=== PATIENT | male | born 1975 | race Caucasian/White ===

== ENCOUNTER 2018-01-09 15:28 | Observation (INO) | payer OTHER ==
[2018-01-09 16:14] LABS: BASO # 0.1 10^3/uL (0.0-0.2); BASO % 1.1 % (0.0-1.0); EOS # 0.2 10^3/uL (0.0-0.50); EOS % 2.1 % (0.0-3.0); HEMATOCRIT 43.7 % (42.0-52.0); HEMOGLOBIN 14.7 g/dl (13.5-17.5); IMMATURE GRANULOCYTE % 0.5 % (0-3.0); LYMPH # 2.9 10^3/uL (1.5-4.5); LYMPH % 33.6 % (24.0-44.0); MEAN CORPUSCULAR HEMOGLOBIN 28.1 pg (27.0-33.0); MEAN CORPUSCULAR HGB CONC 33.6 g/dl (32.0-36.5); MEAN CORPUSCULAR VOLUME 83.4 fl (80.0-96.0); MONO # 0.6 10^3/uL (0.0-0.8); MONO % 7.2 % (0.0-5.0); NEUTROPHILS # 4.7 10^3/uL (1.8-7.7); NEUTROPHILS % 55.5 % (36.0-66.0); PLATELET COUNT, AUTOMATED 314 10^3/uL (150-450); RED BLOOD COUNT 5.24 10^6/uL (4.30-6.10); WHITE BLOOD COUNT 8.5 10^3/uL (4.0-10.0)
[2018-01-09 16:26] LABS: INR 0.93; PROTHROMBIN TIME 12.5 SECONDS (12.4-14.5)
[2018-01-09 16:38] LABS: ALBUMIN/GLOBULIN RATIO 1.14 (1.00-1.93); ALKALINE PHOSPHATASE 81 U/L (45-117); ALT/SGPT 45 U/L (12-78); ANION GAP 8 MEQ/L (8-16); AST/SGOT 22 U/L (7-37); BILIRUBIN,DIRECT 0.2 MG/DL (0.0-0.2); BLOOD UREA NITROGEN 20 MG/DL (7-18); CALCIUM LEVEL 8.7 MG/DL (8.5-10.1); CARBON DIOXIDE LEVEL 27 MEQ/L (21-32); CHLORIDE LEVEL 107 MEQ/L (98-107); CPK CREATINE PHOSPHOKINASE 235 U/L (39-308); CREATININE FOR GFR 1.24 MG/DL (0.70-1.30); GLOMERULAR FILTRATION RATE > 60.0 (>60); GLUCOSE, FASTING 103 MG/DL (70-100); LIPASE 117 U/L (73-393); POTASSIUM SERUM 3.7 MEQ/L (3.5-5.1); SODIUM LEVEL 142 MEQ/L (136-145); TOTAL PROTEIN 7.5 GM/DL (6.4-8.2); TROPONIN I < 0.02 NG/ML (< 0.10)
[2018-01-09 16:44] LABS: CK-MB VALUE MASS 2.8 NG/ML (<3.6); MB/CK RELATIVE INDEX 1.19 (< OR =4)
[2018-01-09] MEDS: ASPIRIN 81 MG CHEW TABLET PO (18:08)
[2018-01-09] MEDS: NITROGLYCERIN 0.4 MG SUBL TABLET SL ×3 (18:09→18:26)
[2018-01-09] MEDS ORDERED: ISOVUE-370 76% 100ML VIAL (Q9967) As Ordered (19:00)
[2018-01-09] MEDS ORDERED: ONDANSETRON 4MG/2ML VIAL (J2405) IV (22:00)
[2018-01-09] MEDS: OMEPRAZOLE 20 MG CAP PO (22:42)
[2018-01-09] MEDS: FUROSEMIDE 40 MG/4 ML VIAL (J1940) IV (22:42)
[2018-01-09 23:07] LABS: CK-MB VALUE MASS 1.8 NG/ML (<3.6); CPK CREATINE PHOSPHOKINASE 195 U/L (39-308); MB/CK RELATIVE INDEX 0.92 (< OR =4); TROPONIN I < 0.02 NG/ML (< 0.10)
[2018-01-10] MEDS: ACETAMINOPHEN 500 MG TAB PO ×4 (00:22→23:55)
[2018-01-10 06:21] LABS: CK-MB VALUE MASS 1.6 NG/ML (<3.6); CPK CREATINE PHOSPHOKINASE 173 U/L (39-308); MB/CK RELATIVE INDEX 0.92 (< OR =4)
[2018-01-10 08:12] LABS: BLOOD UREA NITROGEN 17 MG/DL (7-18); CALCIUM LEVEL 8.5 MG/DL (8.5-10.1); CHLORIDE LEVEL 107 MEQ/L (98-107); CREATININE FOR GFR 1.35 MG/DL (0.70-1.30); GLUCOSE, FASTING 147 MG/DL (70-100); POTASSIUM SERUM 3.4 MEQ/L (3.5-5.1); SODIUM LEVEL 141 MEQ/L (136-145)
[2018-01-10 08:14] LABS: HEMATOCRIT 44.9 % (42.0-52.0); HEMOGLOBIN 15.1 g/dl (13.5-17.5); MEAN CORPUSCULAR HGB CONC 33.6 g/dl (32.0-36.5); MEAN CORPUSCULAR VOLUME 83.1 fl (80.0-96.0); PLATELET COUNT, AUTOMATED 284 10^3/uL (150-450); RED CELL DISTRIBUTION WIDTH 13.2 % (11.5-14.5); WHITE BLOOD COUNT 7.3 10^3/uL (4.0-10.0)
[2018-01-10 08:20] LABS: ANION GAP 6 MEQ/L (8-16); CARBON DIOXIDE LEVEL 28 MEQ/L (21-32)
[2018-01-10] MEDS: SENOKOT S TAB PO ×2 (08:26→21:06)
[2018-01-10] MEDS: OMEPRAZOLE 20 MG CAP PO ×2 (08:26→21:06)
[2018-01-10] MEDS: ASPIRIN 81 MG CHEW TABLET PO (08:26)
[2018-01-10] MEDS: POTASSIUM CHLORIDE 10 MEQ SR TABLET PO (10:01)
[2018-01-10] MEDS: KETOROLAC 30 MG/ML VIAL (J1885) IV (21:07)
[2018-01-11] MEDS: KETOROLAC 30 MG/ML VIAL (J1885) IV (07:02)
[2018-01-11 08:28] LABS: HEMATOCRIT 46.3 % (42.0-52.0); HEMOGLOBIN 15.5 g/dl (13.5-17.5); MEAN CORPUSCULAR HGB CONC 33.5 g/dl (32.0-36.5); MEAN CORPUSCULAR VOLUME 83.7 fl (80.0-96.0); PLATELET COUNT, AUTOMATED 326 10^3/uL (150-450); RED BLOOD COUNT 5.53 10^6/uL (4.30-6.10); RED CELL DISTRIBUTION WIDTH 13.1 % (11.5-14.5); WHITE BLOOD COUNT 9.4 10^3/uL (4.0-10.0)
[2018-01-11 09:14] LABS: ANION GAP 6 MEQ/L (8-16); BLOOD UREA NITROGEN 16 MG/DL (7-18); CALCIUM LEVEL 9.1 MG/DL (8.5-10.1); CARBON DIOXIDE LEVEL 30 MEQ/L (21-32); CHLORIDE LEVEL 106 MEQ/L (98-107); CREATININE FOR GFR 1.41 MG/DL (0.70-1.30); GLOMERULAR FILTRATION RATE 58.1 (>60); GLUCOSE, FASTING 89 MG/DL (70-100); MAGNESIUM LEVEL 2.7 MG/DL (1.8-2.4); POTASSIUM SERUM 4.3 MEQ/L (3.5-5.1); SODIUM LEVEL 142 MEQ/L (136-145)
[2018-01-11] MEDS: ASPIRIN 81 MG CHEW TABLET PO (09:45)
[2018-01-11] MEDS: ACETAMINOPHEN 500 MG TAB PO (09:46)
[2018-01-11] MEDS: SENOKOT S TAB PO (09:46)
[2018-01-11] MEDS: OMEPRAZOLE 20 MG CAP PO (09:46)
== END 2018-01-11 12:55 | disposition home or self-care (01) ==
LOC: M MSPAV 01-10 00:02 → M ED 15:28 → M ED INP 21:57
DX: R07.89 Other chest pain (principal); E87.6 Hypokalemia; R09.89 Other specified symptoms and signs involving the circulatory and respiratory systems; K21.9 Gastro-esophageal reflux disease without esophagitis; R79.89 Other specified abnormal findings of blood chemistry; R42 Dizziness and giddiness; H93.19 Tinnitus, unspecified ear; M54.16 Radiculopathy, lumbar region; M51.26 Other intervertebral disc displacement, lumbar region; Z88.8 Allergy status to other drugs, medicaments and biological substances; Z91.030 Bee allergy status; Z98.1 Arthrodesis status; Z87.891 Personal history of nicotine dependence; Z79.899 Other long term (current) drug therapy
CPT/HCPCS: Q9967

== ENCOUNTER → 2018-01-13 | Outpatient (CLI) | payer OTHER ==
[2018-01-13 11:05] LABS: ANION GAP 7 MEQ/L (8-16); BLOOD UREA NITROGEN 13 MG/DL (7-18); CARBON DIOXIDE LEVEL 29 MEQ/L (21-32); CHLORIDE LEVEL 107 MEQ/L (98-107); CREATININE FOR GFR 1.32 MG/DL (0.70-1.30); GLOMERULAR FILTRATION RATE > 60.0 (>60); GLUCOSE, FASTING 83 MG/DL (70-100); POTASSIUM SERUM 4.3 MEQ/L (3.5-5.1); SODIUM LEVEL 143 MEQ/L (136-145)
== END ==
LOC: M LAB 09:32
DX: R79.9 Abnormal finding of blood chemistry, unspecified (principal)
CPT/HCPCS: 80048

== ENCOUNTER → 2018-03-09 | Outpatient (CLI) | payer OTHER ==
[2018-03-09 13:05] LABS: BASO # 0.1 10^3/uL (0.0-0.2); BASO % 1.1 % (0.0-1.0); EOS # 0.2 10^3/uL (0.0-0.50); EOS % 2.2 % (0.0-3.0); HEMATOCRIT 45.5 % (42.0-52.0); HEMOGLOBIN 15.2 g/dl (13.5-17.5); IMMATURE GRANULOCYTE % 0.3 % (0-3.0); LYMPH # 2.8 10^3/uL (1.5-4.5); LYMPH % 38.4 % (24.0-44.0); MEAN CORPUSCULAR HEMOGLOBIN 28.5 pg (27.0-33.0); MEAN CORPUSCULAR HGB CONC 33.4 g/dl (32.0-36.5); MEAN CORPUSCULAR VOLUME 85.2 fl (80.0-96.0); MONO # 0.5 10^3/uL (0.0-0.8); MONO % 6.7 % (0.0-5.0); NEUTROPHILS # 3.7 10^3/uL (1.8-7.7); NEUTROPHILS % 51.3 % (36.0-66.0); PLATELET COUNT, AUTOMATED 292 10^3/uL (150-450); RED BLOOD COUNT 5.34 10^6/uL (4.30-6.10); RED CELL DISTRIBUTION WIDTH 12.5 % (11.5-14.5); WHITE BLOOD COUNT 7.2 10^3/uL (4.0-10.0)
[2018-03-09 13:26] LABS: ERYTHROCYTE SEDIMENTATION RATE 4 mm/hr (0-15)
[2018-03-09 13:34] LABS: VITAMIN B12 LEVEL 622 PG/ML
[2018-03-09 13:37] LABS: ALBUMIN/GLOBULIN RATIO 1.08 (1.00-1.93); ALKALINE PHOSPHATASE 81 U/L (45-117); ALT/SGPT 66 U/L (12-78); ANION GAP 8 MEQ/L (8-16); AST/SGOT 27 U/L (7-37); BILIRUBIN,TOTAL 0.9 MG/DL (0.2-1.0); BLOOD UREA NITROGEN 22 MG/DL (7-18); CALCIUM LEVEL 9.1 MG/DL (8.5-10.1); CARBON DIOXIDE LEVEL 28 MEQ/L (21-32); CHLORIDE LEVEL 107 MEQ/L (98-107); CREATININE FOR GFR 1.32 MG/DL (0.70-1.30); FREE T4 1.08 NG/DL (0.76-1.46); GLOMERULAR FILTRATION RATE > 60.0 (>60); GLUCOSE, FASTING 85 MG/DL (70-100); RHEUMATOID FACTOR QUANT < 10.0 IU/ML (<15.0); SODIUM LEVEL 143 MEQ/L (136-145); TOTAL PROTEIN 7.7 GM/DL (6.4-8.2)
[2018-03-14 00:09] LABS: VITAMIN B1 LEVEL WHOLE BLOOD 130.9 nmol/L (66.5-200.0)
[2018-03-20 15:00] LABS: ANTINUCLEAR ANTIBODIES DIRECT Negative (Negative); Lyme Disease IgG/IgM Antibodie <0.91 ISR (0.00-0.90); Lyme Disease IgM Ab Quantitati <0.80 index (0.00-0.79); VITAMIN E(ALPHA TOCOPHEROL) 9.6 mg/L (7.0-25.1); VITAMIN E(GAMMA TOCOPHEROL) 1.2 mg/L (0.5-5.5)
== END ==
LOC: M LAB 12:15
DX: R42 Dizziness and giddiness (principal); E07.9 Disorder of thyroid, unspecified
CPT/HCPCS: 82746

== ENCOUNTER 2018-09-27 15:31 | Emergency (ER) | payer OTHER ==
[~2018-09-27] VITALS: Ht 182.9 cm; Wt 106.8 kg
[~2018-09-27 15:31] MED LIST: /ESOM40CA OR; CHIL81CH2 PO; EPIP0.3I2 INJ; NEUR100C OR; OMEP40CA2; OMEP40CA2 PO; PERC5TAB8 OR; ROBA500T OR; ROBA750T OR
[2018-09-27] MEDS ORDERED: VENTAER INH (15:44)
[2018-09-27] MEDS ORDERED: ADVA230A INH (15:44)
[2018-09-27] MEDS ORDERED: CHLO125TA PO (16:00)
[2018-09-27 16:03] LABS: BASO # 0.1 10^3/uL (0.0-0.2); BASO % 0.9 % (0.0-1.0); EOS # 0.2 10^3/uL (0.0-0.50); EOS % 2.1 % (0.0-3.0); HEMATOCRIT 43.5 % (42.0-52.0); HEMOGLOBIN 14.7 g/dl (13.5-17.5); LYMPH # 2.8 10^3/uL (1.5-4.5); LYMPH % 32.7 % (24.0-44.0); MEAN CORPUSCULAR HEMOGLOBIN 28.3 pg (27.0-33.0); MEAN CORPUSCULAR HGB CONC 33.8 g/dl (32.0-36.5); MEAN CORPUSCULAR VOLUME 83.8 fl (80.0-96.0); MONO # 0.5 10^3/uL (0.0-0.8); MONO % 6.2 % (0.0-5.0); NEUTROPHILS # 4.9 10^3/uL (1.8-7.7); NEUTROPHILS % 57.7 % (36.0-66.0); PLATELET COUNT, AUTOMATED 319 10^3/uL (150-450); RED BLOOD COUNT 5.19 10^6/uL (4.30-6.10); WHITE BLOOD COUNT 8.6 10^3/uL (4.0-10.0)
--- NOTE | 2018-09-27 16:13 | REP ---
Oral chest x-ray: Single view. History: Chest pain. Comparison study: January 09, 2018. Findings: There is a linear fibrosis in the left base unchanged. The lungs are otherwise well inflated and clear. Pleural angles are sharp. Heart is not enlarged. EKG electrodes are seen. No significant bony abnormality is seen. Impression: Linear fibrosis left base. Otherwise no acute disease. Electronically Signed by Yossi Kaur MD 09/27/2018 04:03 P
[2018-09-27 16:14] LABS: INR 0.94; PROTHROMBIN TIME 12.7 SECONDS (12.1-14.4)
[2018-09-27] MEDS ORDERED: ASPI81TA85 PO (16:37)
[2018-09-27] MEDS ORDERED: ASPIRIN 81 MG CHEW TABLET PO ONE (16:45)
[2018-09-27 16:46] LABS: ALBUMIN 3.8 GM/DL (3.2-5.2); ALT/SGPT 40 U/L (12-78); BILIRUBIN,DIRECT 0.2 MG/DL (0.0-0.2); BILIRUBIN,TOTAL 0.6 MG/DL (0.2-1.0); BLOOD UREA NITROGEN 22 MG/DL (7-18); CALCIUM LEVEL 8.6 MG/DL (8.5-10.1); CARBON DIOXIDE LEVEL 25 MEQ/L (21-32); CHLORIDE LEVEL 108 MEQ/L (98-107); CPK CREATINE PHOSPHOKINASE 207 U/L (39-308); CREATININE FOR GFR 1.35 MG/DL (0.70-1.30); GLOMERULAR FILTRATION RATE > 60.0 (>60); GLUCOSE, FASTING 114 MG/DL (70-100); LIPASE 126 U/L (73-393); MB/CK RELATIVE INDEX 0.97 (< OR =4); NT-PRO BNP 9 PG/ML (<125); SODIUM LEVEL 140 MEQ/L (136-145); TROPONIN I < 0.02 NG/ML (< 0.10)
[2018-09-27] MEDS ORDERED: NS 500 ML IV ONE (17:00)
[2018-09-27] MEDS ORDERED: ISOVUE-370 76% 100ML VIAL (Q9967) As Ordered ONE (17:06)
--- NOTE | 2018-09-27 18:00 | REP ---
CT ANGIO CHEST: HISTORY: Chest pain. CONTRAST: Isovue-370 370, 75 mL. COMPARISON: 01/09/2018 There are no filling defects in the main, right and left pulmonary arteries or their branches. Linear densities are present in the right middle and left lower lobes consistent with atelectasis or scar. There is no pleural effusion. The heart is normal in size. There is no aneurysm. Degenerative change is present in the thoracic spine. IMPRESSION: 1. There is no pulmonary embolism. 2. Right middle lobe and left lower lobe atelectasis or scar. Electronically Signed by Theo Pitts MD 09/27/2018 06:03 P
--- NOTE | 2018-09-27 19:00 | ECGEPIP ---
Stationary ECG Study [facility] - ED Test Date: 2018-09-27 Pat Name: ELENO ORTEGA Department: Room: - Gender: M Compounder: tk : 1975 Requested By: Judith Johnson Order Number: [id number] Reading MD: Sam Ahuja Measurements Intervals [place] Rate: 89 P: 28 CT: 146 QRS: 19 QRSD: 96 T: 9 QT: 354 QTc: 431 Interpretive Statements SINUS RHYTHM POSSIBLE PRIOR INFERIOR INFARCT SIMILAR TO 02/09/18 Electronically Signed On 09-27-2018 18:59:47 EST by Sam Ahuja
[2018-09-27 22:41] LABS: CPK CREATINE PHOSPHOKINASE 158 U/L (39-308); MB/CK RELATIVE INDEX 0.89 (< OR =4); TROPONIN I < 0.02 NG/ML (< 0.10)
[2018-09-27 23:13] VITALS: BP 140/91
--- NOTE | 2018-09-28 05:33 | ECGEPIP ---
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
--- NOTE | 2018-10-01 18:06 | ED PDOC ---
Post-Departure Follow-Up phillip simpson and gabriela faxed formal report of cta for fu Judy Young MD Oct 01, 2018 18:06
== END 2018-09-27 23:16 | disposition home or self-care (01) ==
LOC: M ED 15:31
DX: R07.9 Chest pain, unspecified (principal); J45.909 Unspecified asthma, uncomplicated; R91.8 Other nonspecific abnormal finding of lung field; Z79.82 Long term (current) use of aspirin; Z79.899 Other long term (current) drug therapy; Z88.8 Allergy status to other drugs, medicaments and biological substances; Z91.030 Bee allergy status
CPT/HCPCS: 71045; 71275; 80048; 80076; 82550; 82553; 83690; 83880; 84443; 84484; 85025; 85610; 93005; 93041; 94760; 99285; Q9967

== ENCOUNTER → 2019-02-15 | Outpatient (CLI) | payer OTHER ==
[~2019-02-15] MED LIST changes: -/ESOM40CA OR; +ADVA230A INH; +ASPI-286 PO; +ASPI81TA85 PO; -CHIL81CH2 PO; +CHLO125TA PO; +NEXI1CAP3 OR; +VENTAER INH
--- NOTE | 2019-02-15 12:20 | REP ---
Right wrist four views History: Pain There is no acute fracture or dislocation. The joint spaces are normal in appearance. Impression: There is no acute fracture or dislocation. Electronically Signed by Theo Pitts MD 02/15/2019 12:12 P
== END ==
LOC: M WUC 08:48
PROVIDERS: ATTEND Nurse Practitioner Adult Health
DX: M25.531 Pain in right wrist (principal)

== ENCOUNTER 2019-05-04 14:40 | Emergency (ER) | payer OTHER ==
[~2019-05-04] VITALS: Ht 182.9 cm; Wt 106.8 kg
[2019-05-04] MEDS ORDERED: LOSA50TA5 (14:47)
[2019-05-04] MEDS ORDERED: FAMOTIDINE INJ 20MG/2ML VIAL (S0028) As Ordered ONE (15:06)
[2019-05-04] MEDS ORDERED: methylPREDNISolone INJ 125 MG/2 ML VIAL (J2930) As Ordered ONE (15:06)
[2019-05-04] MEDS ORDERED: diphenhydrAMINE INJ 50MG/ML VIAL (J1200) As Ordered ONE (15:06)
[2019-05-04] MEDS ORDERED: diphenhydrAMINE INJ 50MG/ML VIAL (J1200) IV ONE (15:15)
[2019-05-04] MEDS ORDERED: FAMOTIDINE INJ 20MG/2ML VIAL (S0028) IVP ONE (15:15)
[2019-05-04] MEDS ORDERED: methylPREDNISolone INJ 125 MG/2 ML VIAL (J2930) IV ONE (15:15)
[2019-05-04 16:15] LABS: HEMATOCRIT 46.2 % (42.0-52.0); HEMOGLOBIN 15.6 g/dl (13.5-17.5); MEAN CORPUSCULAR HEMOGLOBIN 28.5 pg (27.0-33.0); MEAN CORPUSCULAR HGB CONC 33.8 g/dl (32.0-36.5); MEAN CORPUSCULAR VOLUME 84.3 fl (80.0-96.0); PLATELET COUNT, AUTOMATED 358 10^3/uL (150-450); RED BLOOD COUNT 5.48 10^6/uL (4.30-6.10); WHITE BLOOD COUNT 8.9 10^3/uL (4.0-10.0)
[2019-05-04 16:39] LABS: BLOOD UREA NITROGEN 21 MG/DL (7-18); CALCIUM LEVEL 8.7 MG/DL (8.5-10.1); CARBON DIOXIDE LEVEL 26 MEQ/L (21-32); CHLORIDE LEVEL 105 MEQ/L (98-107); CK-MB VALUE MASS 3.1 NG/ML (<3.6); CPK CREATINE PHOSPHOKINASE 439 U/L (39-308); CREATININE FOR GFR 1.36 MG/DL (0.70-1.30); GLOMERULAR FILTRATION RATE > 60.0 (>60); GLUCOSE, FASTING 103 MG/DL (70-100); MB/CK RELATIVE INDEX 0.71 (< OR =4); POTASSIUM SERUM 3.2 MEQ/L (3.5-5.1); SODIUM LEVEL 141 MEQ/L (136-145); TROPONIN I < 0.02 NG/ML (< 0.10)
[2019-05-04 17:30] VITALS: BP 135/82
[2019-05-04] MEDS ORDERED: PRED20TA PO (17:37)
--- NOTE | 2019-05-05 07:15 | ECGEPIP ---
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
== END 2019-05-04 17:58 | disposition home or self-care (01) ==
LOC: M ED 14:40
DX: T63.461A Toxic effect of venom of wasps, accidental (unintentional), initial encounter (principal); R22.0 Localized swelling, mass and lump, head; X58.XXXA Exposure to other specified factors, initial encounter; Y92.89 Other specified places as the place of occurrence of the external cause; J45.909 Unspecified asthma, uncomplicated; I10 Essential (primary) hypertension; K21.9 Gastro-esophageal reflux disease without esophagitis; Z87.891 Personal history of nicotine dependence; Z91.030 Bee allergy status; Z88.8 Allergy status to other drugs, medicaments and biological substances; Z79.899 Other long term (current) drug therapy; Z79.51 Long term (current) use of inhaled steroids
CPT/HCPCS: 80048; 82550; 82553; 84484; 85027; 93005; 93041; 94760; 96374; 96375; 99285; J1200; J2930

== ENCOUNTER → 2019-07-15 | Outpatient (REF) | payer OTHER ==
[~2019-07-15] MED LIST changes: +LOSA50TA5; -OMEP40CA2; -OMEP40CA2 PO; +OMEP40CA97; +OMEP40CA97 PO; +PRED20TA PO
[2019-07-15 19:56] LABS: C REACTIVE PROTEIN QUANTITATIV 0.64 MG/DL (0.00-0.30); RHEUMATOID FACTOR QUANT < 10.0 IU/ML (<15.0)
[2019-07-15 20:22] LABS: HEPATITIS B SURFACE ANTIGEN NEGATIVE (NEGATIVE)
[2019-07-17 09:44] LABS: HEPATITIS B CORE ANTIBODY IGM NEGATIVE (NEGATIVE); HEPATITIS C VIRUS ABY INDEX 0.1 INDEX (<0.8)
[2019-07-17 09:47] LABS: HEPATITIS A ANTIBODY IGM NEGATIVE (NEGATIVE)
[2019-07-18 00:06] LABS: ANTINUCLEAR ANTIBODIES DIRECT Negative (Negative); CYCLIC CITRULLINATED PEPTIDE 7 units (0-19); Lyme Disease IgG/IgM Antibodie <0.91 ISR (0.00-0.90); Lyme Disease IgM Ab Quantitati <0.80 index (0.00-0.79)
== END ==
LOC: M LAB REF 19:08
PROVIDERS: ATTEND Nurse Practitioner Adult Health
DX: M25.531 Pain in right wrist (principal); M13.0 Polyarthritis, unspecified

== ENCOUNTER → 2020-09-12 | Outpatient (CLI) | payer OTHER ==
[~2020-09-12] MED LIST changes: -ASPI81TA85 PO; +ASPI81TA86 PO; -LOSA50TA5; +LOSA50TA5 PO
== END ==
LOC: M LABSMTC 12:00
PROVIDERS: ATTEND Anesthesiology
DX: Z01.812 Encounter for preprocedural laboratory examination (principal); Z20.828 Contact with and (suspected) exposure to other viral communicable diseases

== ENCOUNTER 2020-09-16 08:54 | Day surgery (SDC) | payer OTHER ==
[~2020-09-16] VITALS: Ht 182.9 cm; Wt 105.7 kg
[~2020-09-16 08:54] MED LIST changes: +NS 1,000 ML IV ONE
[2020-09-16] MEDS ORDERED: fentaNYL 100 MCG/2 ML INJECTION (J3010) As Ordered ONE (09:00)
[2020-09-16] MEDS ORDERED: LIDOCAINE 2% 100MG/5ML SDV (FOR ANES.) As Ordered ONE (09:01)
[2020-09-16] MEDS ORDERED: propofoL 500 MG/50 ML VIAL As Ordered ONE (09:01)
--- NOTE | 2020-09-16 10:10 | ROOR ---
Patient Name: Josh Das Procedure Date: 09/16/2020 9:51 AM Date of : 1975 Age: 45 Room: [facility] Gender: Male Note Status: Finalized Procedure: Upper Endoscopy + Biopsies + Balloon Dilatation Indications: Dysphagia, Heartburn Providers: Issa Collins MD Referring MD: Rina Devlin NP Requesting Provider: Medicines: Monitored Anesthesia Care Complications: No immediate complications. Procedure: Pre-Anesthesia Assessment: - The heart rate, respiratory rate, oxygen saturations, blood pressure, adequacy of pulmonary ventilation, and response to care were monitored throughout the procedure. The Endoscope was introduced through the mouth, and advanced to the second part of duodenum. The upper GI endoscopy was accomplished without difficulty. The patient tolerated the procedure well. Findings: The Z-line was variable and was found 45 cm from the incisors. Multiple biopsies were obtained with cold forceps for evaluation to rule out Thompson's Esophagus randomly at 45 cm from the incisors. A TTS dilator was passed through the scope. Dilation with a 15-16.5-18 mm balloon dilator was performed to 18 mm. No other significant abnormalities were identified in a careful examination of the stomach. The exam of the duodenum was otherwise normal. Impression: - Z-line variable, 45 cm from the incisors. Dilated. - Multiple biopsies were obtained at 45 cm from the incisors. - The examination was otherwise normal. Recommendation: - Patient has a contact number available for emergencies. The signs and symptoms of potential delayed complications were discussed with the patient. Return to normal activities tomorrow. Written discharge instructions were provided to the patient. - High fiber diet. - Discharge patient to home. - Follow an antireflux regimen. - Continue present medications. - Await pathology results. - Telephone GI clinic for pathology results in 1 week. - Return to referring physician. - The findings and recommendations were discussed with the patient. Procedure Code(s): --- Professional --- 81701, Esophagogastroduodenoscopy, flexible, transoral; with transendoscopic balloon dilation of esophagus (less than 30 mm diameter) Diagnosis Code(s): --- Professional --- K22.8, Other specified diseases of esophagus R13.10, Dysphagia, unspecified R12, Heartburn CPT copyright 2019 [employer]. All rights reserved. The codes documented in this report are preliminary and upon lead technician review may be revised to meet current compliance requirements. Issa Collins MD Issa Collins MD 09/16/2020 10:09:47 AM Electronically signed by Isas Collins MD Number of Addenda: 0 Note Initiated On: 09/16/2020 9:51 AM Estimated Blood Loss: Estimated blood loss: none.
--- NOTE | 2020-09-16 10:30 | ROOR ---
Patient Name: Josh Das Procedure Date: 09/16/2020 9:52 AM Date of : 1975 Age: 45 Room: [facility] Gender: Male Note Status: Finalized Procedure: Total Colonoscopy to Cecum + Cold Snare Polypectomy + Hemoclip Indications: Colon cancer screening in patient at increased risk: Colorectal cancer in father Providers: Issa Collins MD Referring MD: Rina Devlin NP Requesting Provider: Medicines: Monitored Anesthesia Care Complications: No immediate complications. Procedure: Pre-Anesthesia Assessment: - The heart rate, respiratory rate, oxygen saturations, blood pressure, adequacy of pulmonary ventilation, and response to care were monitored throughout the procedure. The was introduced through the anus and advanced to the cecum, identified by appendiceal orifice and ileocecal valve. The colonoscopy was performed without difficulty. The patient tolerated the procedure well. The quality of the bowel preparation was good. Findings: The perianal and digital rectal examinations were normal. Non-bleeding internal hemorrhoids were found during retroflexion. The hemorrhoids were small and Grade I (internal hemorrhoids that do not prolapse). A small polyp was found in the cecum. The polyp was sessile. The polyp was removed with a cold biopsy forceps. Resection and retrieval were complete. A small polyp was found in the rectum. The polyp was sessile. The polyp was removed with a cold snare. Resection and retrieval were complete. To prevent bleeding after the polypectomy, one hemostatic clip was successfully placed (MR conditional). There was no bleeding at the end of the procedure. The exam was otherwise without abnormality on direct and retroflexion views. Impression: - Non-bleeding internal hemorrhoids. - One small polyp in the cecum, removed with a cold biopsy forceps. Resected and retrieved. - One small polyp in the rectum, removed with a cold snare. Resected and retrieved. Clip (MR conditional) was placed. - The examination was otherwise normal on direct and retroflexion views. - The exam was otherwise normal to the cecum. Recommendation: - Patient has a contact number available for emergencies. The signs and symptoms of potential delayed complications were discussed with the patient. Return to normal activities tomorrow. Written discharge instructions were provided to the patient. - High fiber diet. - Discharge patient to home. - Continue present medications. - Await pathology results. - Telephone GI clinic for pathology results in 1 week. - Repeat colonoscopy in 3 years for surveillance based on pathology results. - Return to referring physician. - The findings and recommendations were discussed with the patient. Procedure Code(s): --- Professional --- 91468, Colonoscopy, flexible; with removal of tumor(s), polyp(s), or other lesion(s) by snare technique 68949, 59, Colonoscopy, flexible; with biopsy, single or multiple Diagnosis Code(s): --- Professional --- Z80.0, Family history of malignant neoplasm of digestive organs K64.0, First degree hemorrhoids K63.5, Polyp of colon K62.1, Rectal polyp CPT copyright 2019 [employer]. All rights reserved. The codes documented in this report are preliminary and upon equipment installer review may be revised to meet current compliance requirements. Issa Collins MD Issa Collins MD 09/16/2020 10:29:43 AM Electronically signed by Issa Collins MD Number of Addenda: 0 Note Initiated On: 09/16/2020 9:52 AM Estimated Blood Loss: Estimated blood loss: none.
== END 2020-09-16 11:06 | disposition home or self-care (01) ==
LOC: M OPP 08:54
PROVIDERS: ATTEND Internal Medicine Gastroenterology
DX: Z12.11 Encounter for screening for malignant neoplasm of colon (principal); Z80.0 Family history of malignant neoplasm of digestive organs; R13.10 Dysphagia, unspecified; R12 Heartburn; K63.5 Polyp of colon; K64.0 First degree hemorrhoids; D13.0 Benign neoplasm of esophagus; K22.8 Other specified diseases of esophagus; I10 Essential (primary) hypertension; M19.90 Unspecified osteoarthritis, unspecified site; F32.9 Major depressive disorder, single episode, unspecified; J45.909 Unspecified asthma, uncomplicated; G47.30 Sleep apnea, unspecified; Z87.891 Personal history of nicotine dependence; Z88.6 Allergy status to analgesic agent; Z91.030 Bee allergy status; Z79.899 Other long term (current) drug therapy
CPT/HCPCS: 43239; 43249; 45380; 45385; 88305; J3010

== ENCOUNTER → 2022-02-15 | Outpatient (CLI) | payer OTHER ==
[~2022-02-15] MED LIST changes: -ASPI-286 PO; -NS 1,000 ML IV ONE; +OMEP40CA4; +OMEP40CA4 PO; -OMEP40CA97; -OMEP40CA97 PO; +SM C81CH2 PO
== END ==
LOC: M PLAIMG 08:20
PROVIDERS: ATTEND Internal Medicine Pulmonary Disease
DX: R91.8 Other nonspecific abnormal finding of lung field (principal)

== ENCOUNTER 2022-10-05 10:08 | Emergency (ER) | payer OTHER ==
[~2022-10-05] VITALS: Ht 182.9 cm; Wt 96.4 kg
[2022-10-05] MEDS ORDERED: POTA-151 (10:37)
[2022-10-05] MEDS ORDERED: FLUT11IN (10:37)
[2022-10-05 13:11] LABS: BASO # 0.1 10^3/uL (0.0-0.2); EOS # 0.1 10^3/uL (0.0-0.5); EOS % 1.4 % (0.0-3.0); HEMATOCRIT 50.4 % (42.0-52.0); HEMOGLOBIN 16.6 g/dl (13.5-17.5); LYMPH # 2.7 10^3/uL (1.5-5.0); LYMPH % 34.1 % (24.0-44.0); MEAN CORPUSCULAR HEMOGLOBIN 27.7 pg (27.0-33.0); MEAN CORPUSCULAR HGB CONC 32.9 g/dl (32.0-36.5); MONO # 0.4 10^3/uL (0.0-0.8); MONO % 4.5 % (2.0-8.0); NEUTROPHILS # 4.7 10^3/uL (1.5-8.5); NEUTROPHILS % 58.7 % (36.0-66.0); PLATELET COUNT, AUTOMATED 304 10^3/uL (150-450)
[2022-10-05 13:27] LABS: BLOOD UREA NITROGEN 16 MG/DL (9-23); CALCIUM LEVEL 9.4 MG/DL (8.5-10.1); CARBON DIOXIDE LEVEL 29 MMOL/L (20-31); CHLORIDE LEVEL 104 MMOL/L (98-107); CREATININE FOR GFR 1.17 MG/DL (0.70-1.30); GLOMERULAR FILTRATION RATE > 60.0 (>60); GLUCOSE, FASTING 82 MG/DL (60-100); POTASSIUM SERUM 4.2 MMOL/L (3.5-5.1); SODIUM LEVEL 140 MMOL/L (136-145)
[2022-10-05] MEDS ORDERED: ISOVUE-370 76% 100ML VIAL As Ordered ONE (14:00)
[2022-10-05 14:07] LABS: INR 0.97; PROTHROMBIN TIME 13.1 SECONDS (12.5-14.5)
[2022-10-05 14:08] LABS: PARTIAL THROMBOPLASTIN TIME 32.9 SECONDS (24.8-34.2)
[2022-10-05 14:10] LABS: ALKALINE PHOSPHATASE 86 U/L (46-116); ALT/SGPT 21 U/L (7.0-40); AST/SGOT 19 U/L (<34); BILIRUBIN,DIRECT 0.4 MG/DL (<0.4); BILIRUBIN,TOTAL 1.3 MG/DL (0.3-1.2); TOTAL PROTEIN 7.3 G/DL (5.7-8.2)
[2022-10-05 14:51] VITALS: BP 120/76
[2022-10-05 14:54] LABS: RSV AMPLIFICATION NEGATIVE (NEGATIVE)
[2022-10-05 17:01] LABS: GC DNA AMPLIFICATION NEGATIVE (NEGATIVE)
[2022-10-05] MEDS ORDERED: CIPR-249 PO (17:46)
[2022-10-05] MEDS ORDERED: METR-265 PO (17:46)
[2022-10-05] MEDS ORDERED: CIPROFLOXACIN 500MG TABLET PO ONE (17:55)
[2022-10-05] MEDS ORDERED: metroNIDAZOLE (FLAGYL) 500MG TABLET PO ONE (17:55)
== END 2022-10-05 18:00 | disposition home or self-care (01) ==
LOC: M ED 10:08
DX: K92.2 Gastrointestinal hemorrhage, unspecified (principal); K51.20 Ulcerative (chronic) proctitis without complications; I10 Essential (primary) hypertension; K21.9 Gastro-esophageal reflux disease without esophagitis; J45.909 Unspecified asthma, uncomplicated; M54.50 Low back pain, unspecified; F32.A Depression, unspecified; F17.200 Nicotine dependence, unspecified, uncomplicated; F10.10 Alcohol abuse, uncomplicated; Z88.6 Allergy status to analgesic agent; Z91.030 Bee allergy status; Z79.52 Long term (current) use of systemic steroids; Z79.811 Long term (current) use of aromatase inhibitors; Z79.899 Other long term (current) drug therapy

== ENCOUNTER → 2022-11-03 | Outpatient (CLI) | payer OTHER ==
[~2022-11-03] MED LIST changes: +CIPR-249 PO; +CVS1CAP2 PO; +FLUT11IN; +MECL-86 PO; +METR-265 PO; +POTA-151
== END ==
LOC: M LABSMTC 08:27
PROVIDERS: ATTEND Anesthesiology
DX: Z01.812 Encounter for preprocedural laboratory examination (principal); Z11.52 Encounter for screening for COVID-19

== ENCOUNTER 2022-11-08 12:53 | Day surgery (SDC) | payer OTHER ==
[~2022-11-08] VITALS: Ht 182.9 cm; Wt 96.2 kg
[~2022-11-08 12:53] MED LIST changes: +ceFAZolin SOD 2 GM in IV 1 EA IV ONE
[2022-11-08] MEDS ORDERED: LR 1,000 ML IV SCH ×2 (13:40→16:25)
[2022-11-08] MEDS ORDERED: BUPIVACAINE HCL 0.25% 30ML VIAL As Ordered ONE (14:03)
[2022-11-08] MEDS ORDERED: BUPIVACAINE LIPOSOME/PF 1.3% 20ML VIAL (13.3MG/ML)(EXPAREL) As Ordered ONE (14:03)
[2022-11-08] MEDS ORDERED: BUPIVACAINE/EPIN 0.25% 30ML VIAL As Ordered ONE (14:14)
[2022-11-08] MEDS ORDERED: ROCURONIUM BROMIDE 50MG/5ML VIAL As Ordered ONE (14:55)
[2022-11-08] MEDS ORDERED: SUGAMMADEX SODIUM 500 MG/5 ML VIAL (BRIDION) As Ordered ONE (14:56)
[2022-11-08] MEDS ORDERED: KETOROLAC 60MG 2ML VIAL As Ordered ONE (14:56)
[2022-11-08] MEDS ORDERED: propofoL 200 MG/20 ML VIAL As Ordered ONE (14:56)
[2022-11-08] MEDS ORDERED: MIDAZOLAM INJ 2MG/2ML VIAL As Ordered ONE (14:56)
[2022-11-08] MEDS ORDERED: LIDOCAINE 2% 100MG/5ML SDV (FOR ANES.) As Ordered ONE (14:56)
[2022-11-08] MEDS ORDERED: fentaNYL 100 MCG/2 ML INJECTION As Ordered ONE (14:56)
[2022-11-08] MEDS ORDERED: ONDANSETRON 4MG 2ML VIAL As Ordered ONE (14:56)
[2022-11-08] MEDS ORDERED: ONDANSETRON 4MG 2ML VIAL IV PRN (16:25)
[2022-11-08] MEDS ORDERED: fentaNYL 100 MCG/2 ML INJECTION IV PRN (16:25)
[2022-11-08] MEDS ORDERED: oxyCODONE 5MG TAB PO PRN (16:25)
[2022-11-08] MEDS ORDERED: HYDROMORPHONE HCL 0.5 MG/ 0.5 ML SYRINGE IV PRN (16:25)
[2022-11-08 17:30] VITALS: BP 136/83
[2022-11-08] MEDS ORDERED: NS 1,000 ML IV SCH (19:55)
[2022-11-08] MEDS ORDERED: PERCOCET 5MG/325MG TAB PO PRN ×2 (19:55)
== END 2022-11-08 17:39 | disposition home or self-care (01) ==
LOC: M SDC 12:53
PROVIDERS: ATTEND Surgery
DX: K42.9 Umbilical hernia without obstruction or gangrene (principal); I10 Essential (primary) hypertension; K21.9 Gastro-esophageal reflux disease without esophagitis; F32.A Depression, unspecified; R07.9 Chest pain, unspecified; J45.909 Unspecified asthma, uncomplicated; G47.33 Obstructive sleep apnea (adult) (pediatric); Z79.51 Long term (current) use of inhaled steroids; Z79.899 Other long term (current) drug therapy; Z91.030 Bee allergy status; Z88.8 Allergy status to other drugs, medicaments and biological substances
CPT/HCPCS: 49591; C9290; J0690; J1100; J1885; J2250; J2405; J3010; S0020

== ENCOUNTER 2022-12-27 07:29 | Emergency (ER) | payer OTHER ==
[~2022-12-27] VITALS: Ht 182.9 cm; Wt 99.5 kg
[~2022-12-27 07:29] MED LIST changes: -ceFAZolin SOD 2 GM in IV 1 EA IV ONE
[2022-12-27 08:35] LABS: BASO # 0.1 10^3/uL (0.0-0.2); BASO % 1.5 % (0.0-1.0); EOS # 0.2 10^3/uL (0.0-0.5); EOS % 2.4 % (0.0-3.0); HEMATOCRIT 47.5 % (42.0-52.0); HEMOGLOBIN 15.9 g/dl (13.5-17.5); LYMPH # 2.4 10^3/uL (1.5-5.0); LYMPH % 32.7 % (24.0-44.0); MEAN CORPUSCULAR HEMOGLOBIN 28.3 pg (27.0-33.0); MEAN CORPUSCULAR HGB CONC 33.5 g/dl (32.0-36.5); MEAN CORPUSCULAR VOLUME 84.5 fl (80.0-96.0); MONO # 0.5 10^3/uL (0.0-0.8); MONO % 7.5 % (2.0-8.0); NEUTROPHILS % 55.6 % (36.0-66.0); PLATELET COUNT, AUTOMATED 307 10^3/uL (150-450); RED BLOOD COUNT 5.62 10^6/uL (4.30-6.10); WHITE BLOOD COUNT 7.2 10^3/uL (4.0-10.0)
[2022-12-27 08:39] LABS: LIPASE 29 U/L (12-53)
[2022-12-27 08:41] LABS: ALBUMIN 3.9 G/DL (3.2-5.2); ALKALINE PHOSPHATASE 88 U/L (46-116); ALT/SGPT 18 U/L (7.0-40); AST/SGOT 14 U/L (<34); BILIRUBIN,DIRECT 0.3 MG/DL (<0.4); BILIRUBIN,TOTAL 0.9 MG/DL (0.3-1.2); BLOOD UREA NITROGEN 19 MG/DL (9-23); CARBON DIOXIDE LEVEL 27 MMOL/L (20-31); CHLORIDE LEVEL 108 MMOL/L (98-107); CREATININE FOR GFR 1.18 MG/DL (0.70-1.30); GLOMERULAR FILTRATION RATE > 60.0 (>60); GLUCOSE, FASTING 100 MG/DL (60-100); POTASSIUM SERUM 3.9 MMOL/L (3.5-5.1); SODIUM LEVEL 140 MMOL/L (136-145); TOTAL PROTEIN 6.9 G/DL (5.7-8.2)
[2022-12-27] MEDS ORDERED: NS 1,000 ML IV ONE (11:30)
[2022-12-27] MEDS ORDERED: KETOROLAC 30 MG/ML 1ML VIAL IV ONE (11:30)
[2022-12-27] MEDS ORDERED: ISOVUE-370 76% 100ML VIAL As Ordered ONE (11:33)
[2022-12-27] MEDS ORDERED: ONDA4TAB6 PO (14:43)
[2022-12-27 14:53] VITALS: BP 143/82
== END 2022-12-27 14:55 | disposition home or self-care (01) ==
LOC: M ED 07:29
DX: A04.4 Other intestinal Escherichia coli infections (principal); I10 Essential (primary) hypertension; K21.9 Gastro-esophageal reflux disease without esophagitis; N18.9 Chronic kidney disease, unspecified; M54.50 Low back pain, unspecified; F32.A Depression, unspecified; J45.909 Unspecified asthma, uncomplicated; F17.200 Nicotine dependence, unspecified, uncomplicated; F10.10 Alcohol abuse, uncomplicated; Z91.030 Bee allergy status; Z88.6 Allergy status to analgesic agent; Z79.52 Long term (current) use of systemic steroids; Z79.83 Long term (current) use of bisphosphonates; Z79.811 Long term (current) use of aromatase inhibitors; Z79.899 Other long term (current) drug therapy
CPT/HCPCS: 74177; 80048; 80076; 83690; 85025; 86850; 86900; 86901; 87507; 96361; 96374; 99284; J1885; Q9967

== ENCOUNTER → 2023-09-13 | Outpatient (CLI) | payer OTHER ==
[~2023-09-13] MED LIST changes: -FLUT11IN; +FLUT12AE6; +ONDA4TAB6 PO
== END ==
LOC: M RAD 08:03
PROVIDERS: ATTEND Internal Medicine Pulmonary Disease
DX: Z87.891 Personal history of nicotine dependence (principal)

== ENCOUNTER → 2023-11-18 | Outpatient (REF) | payer OTHER ==
[2023-11-18 19:54] LABS: Trichomonas vaginalis (AMP) NOT DETECTED (NEGATIVE)
[2023-11-18 20:18] LABS: GC DNA AMPLIFICATION NEGATIVE (NEGATIVE)
== END ==
LOC: M LAB REF 17:59
PROVIDERS: ATTEND Student in an Organized Health Care Education/Training Program
DX: N50.811 Right testicular pain (principal)

== ENCOUNTER → 2023-11-21 | Outpatient (CLI) | payer OTHER | LOC: M RAD 12:44 | PROVIDERS: ATTEND Student in an Organized Health Care Education/Training Program | DX: N50.811 Right testicular pain (principal) ==

== ENCOUNTER → 2024-10-14 | Outpatient (CLI) | payer OTHER ==
[~2024-10-14] MED LIST changes: +ONDA-282 PO; -ONDA4TAB6 PO
== END ==
LOC: M RAD 16:41
PROVIDERS: ATTEND Internal Medicine Pulmonary Disease
DX: Z12.2 Encounter for screening for malignant neoplasm of respiratory organs (principal); F17.218 Nicotine dependence, cigarettes, with other nicotine-induced disorders